=== PATIENT | male | born 1980 | race Caucasian/White ===

== ENCOUNTER 2020-09-29 19:01 | Emergency (ER) | payer SELFPAY ==
[~2020-09-29] VITALS: Ht 185.4 cm; Wt 84.0 kg
[2020-09-29] MEDS ORDERED: LORAZEPAM 2MG/ML CPJ IM STA (19:34)
[2020-09-29] MEDS ORDERED: DIPHENHYDRAMINE 50MG/ML VIAL IM STA (19:34)
[2020-09-29] MEDS ORDERED: HALOPERIDOL LACTATE 5MG/ML VIAL IM STA (19:34)
[2020-09-29] MEDS ORDERED: SODIUM CHLORIDE 0.9% 1,000 ML IV ONE (19:45)
[2020-09-29 20:39] LABS: BASOPHILS % 0.4 % (0.0-2.0); EOSINOPHILS % 5.3 % (0.0-5.0); HEMOGLOBIN. 12.5 g/dL (14.0-18.0); LYMPHOCYTES % 31.7 % (20.0-50.0); MEAN CORPUSCULAR HEMOGLOBIN 27.1 pg (28.0-32.0); MEAN CORPUSCULAR VOLUME 82.5 fL (80.0-94.0); MEAN PLATELET VOLUME 7.6 fl (7.4-10.4); MONOCYTES % 8.2 % (2.0-8.0); NEUTROPHILS % 54.4 % (40.0-76.0); PLATELET 288 x1000/uL (130-400)
[2020-09-29 20:43] LABS: CHLORIDE 110 mEq/L (98-107)
[2020-09-29 20:47] LABS: ETHANOL BLOOD < 10 mg/dL
[2020-09-30] MEDS ORDERED: LORAZEPAM 2MG/ML CPJ IM NR (01:00)
[2020-09-30] MEDS ORDERED: DIPHENHYDRAMINE 50MG/ML VIAL IM NR (01:15)
[2020-09-30] MEDS ORDERED: HALOPERIDOL LACTATE 5MG/ML VIAL IM NR (01:15)
[2020-09-30 12:58] LABS: CLARITY URINE CLEAR (CLEAR); COLOR URINE YELLOW (YELLOW); KETONES URINE TRACE (NEGATIVE); LEUKOCYTE ESTERASE URINE NEGATIVE (NEGATIVE); NITRITE URINE NEGATIVE (NEGATIVE); OCCULT BLOOD URINE NEGATIVE (NEGATIVE); PROTEIN URINE NEGATIVE (NEGATIVE)
[2020-09-30 13:26] LABS: *AMPHETAMINES SCREEN URINE PRESUMTIVE POSITIVE (NEGATIVE); *BARBITURATES SCREEN URINE NEGATIVE (NEGATIVE); *BENZODIAZEPINES SCREEN URINE NEGATIVE (NEGATIVE)
[2020-09-30 13:27] LABS: *COCAINE SCREEN URINE NEGATIVE (NEGATIVE); CANNABINOID URINE SCREEN NEGATIVE (NEGATIVE); METHADONE URINE SCREEN NEGATIVE (NEGATIVE); OPIATES URINE SCREEN NEGATIVE (NEGATIVE); PHENCYCLIDINE URINE SCREEN NEGATIVE (NEGATIVE)
[2020-09-30 23:39] VITALS: BP 110/78
== END 2020-10-01 00:04 | disposition home or self-care (01) ==
LOC: EDBD 19:01 → ER 19:01
DX: F23 Brief psychotic disorder (principal); R45.1 Restlessness and agitation; Z20.828 Contact with and (suspected) exposure to other viral communicable diseases; I49.9 Cardiac arrhythmia, unspecified; R51.9 Headache, unspecified
CPT/HCPCS: 36415; 70450; 80053; 80305; 80320; 81003; 85025; 87426; 93005; 96360; 96372; 99285; J1200; J1630; J2060; J7030; G0480